=== PATIENT | male | born 1970 | race African-American/Black ===

== ENCOUNTER 2022-04-09 23:58 | Emergency (ER) | payer OTHER, SELFPAY ==
--- NOTE | ~2022-04-09 | CT_ITS ---
EXAMINATION: CT HEAD WITHOUT CONTRAST CLINICAL INFORMATION: Seizure COMPARISON: None. TECHNIQUE: Contiguous axial imaging was performed from the skull base to vertex without intravenous contrast. This CT examination was performed using dose optimization techniques as appropriate, variously including the following: * Automated exposure control * Adjustment of mA and/or kV according to patient size (this includes techniques or standardized protocols for targeted exams where dose is matched to indication/reason for exam; i.e. extremities or head) Use of iterative reconstruction technique DLP: 775 mGy-cm. FINDINGS: There is no evidence of acute intracranial hemorrhage or territorial infarction. No abnormal mass effect or midline shift is seen. Frank to white matter differentiation is well preserved. No extra-axial fluid collections are identified. No hydrocephalus. No significant volume loss. There is no abnormal attenuation within the brain parenchyma. The osseous structures and soft tissues are normal. The mastoid air cells and visualized portions of the paranasal sinuses are well aerated. CT/CT head/brain wo IV con IMPRESSION: No acute intracranial pathology.
[2022-04-10 00:14] VITALS: BP 120/80; PULSE 68; O2SAT 98
--- NOTE | 2022-04-10 00:14 | PC.NURSE ---
union carpenter Brian notified that pt. is syncopal per EMS and has IV in his arm from EMS. Pt. being moved to 22H in main ED at this time.
[2022-04-10 00:16] VITALS: BP 124/83; PULSE 72; RESP 16; TEMP 37.2; O2SAT 99
--- NOTE | 2022-04-10 00:44 | ED_ITS ---
HPI - Syncope General Chief Complaint: Syncope Stated Complaint: syncope Time Seen by Provider: 04/10/22 00:43 Source: patient and family Mode of arrival: EMS Limitations: no limitations History of Present Illness HPI narrative: Patient no significant past medical history drinks alcohol occasionally for possible seizure episode. Patient was downstairs in the kitchen, felt dizzy and lightheaded, was upstairs suddenly she heard a thud came downstairs and found him on a chair stiff not responding no signs of injuries patient remained stiff for about 5 minutes then started breathing heavily with diaphoresis confused and very tired was incontinent of the urine no tongue bite. Patient had alcohol earlier today and did not sleep for last 2 nights. Patient had similar episode 4 months and 5 months ago but short lasting not been followed by not on any medications no history of headache patient had a significant head injury in 2007 no family history of seizure Related Data Previous Rx's Medication Instructions Recorded levetiracetam 500 mg tablet 500 mg PO BID #60 tabs 04/10/22 (Keppra) Allergies Allergy/AdvReac Type Severity Reaction Status Date / Time No Known Allergies Allergy Verified 04/10/22 01:04 Review of Systems Review of Systems: Yes all other systems are reviewed and are negative [facility] Social History Social History Alcohol intake: current Alcohol type: beer and hard liquor Patient Tobacco Use Status: Current everyday Tobacco user Use of substances other than those prescribed or required for medical reasons: No Substance Use Type: Marijuana Advance Directives: No Advance Directives Information Provided: No Physical Exam Vital Signs: Vital Signs: Last Vital Signs Temp 97.6 F 04/10/22 02:07 Pulse 63 04/10/22 02:07 Resp 12 04/10/22 02:07 BP 144/85 H 04/10/22 02:07 Pulse Ox 99 04/10/22 02:07 O2 Del Method 04/10/22 02:07 BMI result Body Mass Index 25.7 Appearance: Alert. Oriented X3. No acute distress. Tired and sleepy Eyes: PERRLA, No Nystagmus ENT: Pharynx normal. Oral Mucosa moist no tongue bite Neck: Normal inspection. Neck supple. CVS: Normal heart rate and rhythm. Pulses normal. Respiratory: No respiratory distress. Equal air entry bilateral, no wheezing/rales/rhonchi Abdomen: Soft and nontender. Bowel sounds are present, no mass palpable, no CVA tenderness Skin: Skin warm and dry. Normal skin color. Normal skin turgor. Extremities: No lower extremity edema. No calf tenderness Neuro: Oriented X 3. No motor deficit. No sensory deficit.No cerebellar signs , cranial nerves II-XII intact MDM - Syncope MDM Narrative Medical decision making narrative: 01:00 Patient clinically had a seizure episode is the 3rd episode will start patient on Keppra will do CT scan of brain check labs magnesium level and alcohol level 03:00 patient workup is negative likely idiopathic seizure discharge patient home on Keppra advised to follow with neurologist Lab Data Attestation: I reviewed the patient's lab results. Result diagrams: 04/10/22 01:24 04/10/22 01:24 Labs: Lab Results 04/10/22 04/10/22 04/10/22 Range/Units 01:24 01:24 01:24 WBC 4.3 L (4.8-10.8) X10*3/uL RBC 5.19 (4.60-5.80) X10*6/uL Hgb 11.2 L (14.0-18.0) g/dl Hct 36.2 L (42.0-52.0) % MCV 69.7 L (80.0-98.0) fL MCH 21.6 L (27.0-33.0) pg MCHC 30.9 L (31.0-36.0) g/dl RDW 15.8 (11.0-16.0) % Plt Count 336 (160-400) X10*3/uL MPV 8.2 L (9.4-12.4) fL Immature Gran % (Auto) 0.0 (0.0-0.4) % Neut % (Auto) 51.8 (45-73) % Lymph % (Auto) 37.4 (20-40) % [place] % (Auto) 9.0 (2-11) % Eos % (Auto) 1.6 (0-4) % Baso % (Auto) 0.2 (0-2) % Lymph # (Auto) 1.6 (1.2-4.9) X10*3/uL [place] # (Auto) 0.4 (0.1-1.2) X10*3/uL Eos # (Auto) 0.1 (0.0-0.4) X10*3/uL Baso # (Auto) 0.0 (0.0-0.2) X10*3/uL Abs Immat Gran (auto) 0.00 (0.00-0.03) X10*3/uL Absolute Neuts (auto) 2.2 (2.0-8.3) x10*3/uL Absolute Nucleated RBC 0.000 (0.0-0.012) X10*3/uL Nucleated RBC % (auto) 0.0 (0.0-0.2) /100WBC PT 12.2 (10.0-13.1) SEC INR 1.1 (0.9-1.1) Sodium 138 (135-145) mmol/L Potassium 3.8 (3.3-5.1) mmol/L Chloride 103 (96-108) mmol/L Carbon Dioxide 22 (22-29) mmol/L Anion Gap 17 (12-20) BUN 9 (9-16) mg/dL Creatinine 1.21 (0.5-1.4) mg/dL Estim Creat Clear Calc 74.3 Estimated GFR > 60 Random Glucose 102 (60-115) mg/dL Estimat Average Glucose mg/dL Hemoglobin A1c % % Calcium 8.5 (8.4-10.2) mg/dL Magnesium 2.3 (1.6-2.6) mg/dL Total Bilirubin 0.2 (0.0-1.0) mg/dL AST 16 (5-37) U/L ALT 12 (0-40) U/L Alkaline Phosphatase 69 (39-117) U/L Total Protein 7.7 (6.5-8.0) g/dL Albumin 4.0 (3.5-5.0) g/dL Ethyl Alcohol 88 mg/dL 04/10/22 Range/Units 01:24 WBC (4.8-10.8) X10*3/uL RBC (4.60-5.80) X10*6/uL Hgb (14.0-18.0) g/dl Hct (42.0-52.0) % MCV (80.0-98.0) fL MCH (27.0-33.0) pg MCHC (31.0-36.0) g/dl RDW (11.0-16.0) % Plt Count (160-400) X10*3/uL MPV (9.4-12.4) fL Immature Gran % (Auto) (0.0-0.4) % Neut % (Auto) (45-73) % Lymph % (Auto) (20-40) % [place] % (Auto) (2-11) % Eos % (Auto) (0-4) % Baso % (Auto) (0-2) % Lymph # (Auto) (1.2-4.9) X10*3/uL [place] # (Auto) (0.1-1.2) X10*3/uL Eos # (Auto) (0.0-0.4) X10*3/uL Baso # (Auto) (0.0-0.2) X10*3/uL Abs Immat Gran (auto) (0.00-0.03) X10*3/uL Absolute Neuts (auto) (2.0-8.3) x10*3/uL Absolute Nucleated RBC (0.0-0.012) X10*3/uL Nucleated RBC % (auto) (0.0-0.2) /100WBC PT (10.0-13.1) SEC INR (0.9-1.1) Sodium (135-145) mmol/L Potassium (3.3-5.1) mmol/L Chloride (96-108) mmol/L Carbon Dioxide (22-29) mmol/L Anion Gap (12-20) BUN (9-16) mg/dL Creatinine (0.5-1.4) mg/dL Estim Creat Clear Calc Estimated GFR Random Glucose (60-115) mg/dL Estimat Average Glucose 114 mg/dL Hemoglobin A1c % 5.6 % Calcium (8.4-10.2) mg/dL Magnesium (1.6-2.6) mg/dL Total Bilirubin (0.0-1.0) mg/dL AST (5-37) U/L ALT (0-40) U/L Alkaline Phosphatase (39-117) U/L Total Protein (6.5-8.0) g/dL Albumin (3.5-5.0) g/dL Ethyl Alcohol mg/dL Discharge Plan Discharge Clinical Impression: New onset seizure Patient Disposition: Home, Self-Care Instructions: New-Onset Seizure in Adults (ED) Additional Instructions: Avoid alcohol sleep well You likely have seizure disorder Take Keppra 500 mg twice daily for seizure Follow with neurologist for further evaluation and treatment Prescriptions: New levetiracetam [Keppra] 500 mg tablet 500 mg PO BID Qty: 60 0RF Referrals: Nevaeh Cook MD [Physician] - 1 week Discharge Date/Time: 04/10/22 03:50 Print Language: Hungarian
[2022-04-10 00:45] VITALS: BP 106/63; PULSE 53; RESP 18; TEMP 36.6; O2SAT 95
[2022-04-10 00:50] VITALS: BMI 25.7
[2022-04-10 01:27] LABS: MANUAL DIFF FLAG NO
[2022-04-10 01:28] LABS: Basophils Percent Auto 0.2 % (0-2); Eosinophils Absolute Auto 0.1 X10*3/uL (0.0-0.4); Eosinophils Percent Auto 1.6 % (0-4); Hematocrit 36.2 % (42.0-52.0); Hemoglobin 11.2 g/dl (14.0-18.0); Lymphocytes Absolute Auto 1.6 X10*3/uL (1.2-4.9); Lymphocytes Percent Auto 37.4 % (20-40); Mean Corpuscular HGB Conc 30.9 g/dl (31.0-36.0); Mean Corpuscular Hemoglobin 21.6 pg (27.0-33.0); Mean Corpuscular Volume 69.7 fL (80.0-98.0); Mean Platelet Volume 8.2 fL (9.4-12.4); Monocytes Absolute Auto 0.4 X10*3/uL (0.1-1.2); Neutrophils Absolute Auto 2.2 x10*3/uL (2.0-8.3); Neutrophils Percent Auto 51.8 % (45-73); Platelet Count 336 X10*3/uL (160-400); Red Blood Count 5.19 X10*6/uL (4.60-5.80); Red Cell Distribution Width 15.8 % (11.0-16.0); White Blood Count 4.3 X10*3/uL (4.8-10.8)
[2022-04-10 01:34] LABS: INTERNATIONAL NORM RATIO 1.1 (0.9-1.1); Prothrombin Time 12.2 SEC (10.0-13.1)
[2022-04-10] MEDS: levETIRAcetam in NaCl (iso-os) 1,000 MG/100 ML PIGGYBACK 400 MG IV (01:35)
[2022-04-10] MEDS: 0.9 % Sodium Chloride 1,000 ML 999 ML IV (01:35)
[2022-04-10 01:46] LABS: Alanine Aminotransferase 12 U/L (0-40); Alkaline Phosphatase 69 U/L (39-117); Anion Gap 17 (12-20); Aspartate Amino Transferase 16 U/L (5-37); Bilirubin Total 0.2 mg/dL (0.0-1.0); Blood Urea Nitrogen 9 mg/dL (9-16); Calcium 8.5 mg/dL (8.4-10.2); Carbon Dioxide 22 mmol/L (22-29); Chloride 103 mmol/L (96-108); Creatinine Clr Calc Pharmacy 74.3; Estimated Glomerular Filt Rate > 60; Ethanol 88 mg/dL; Glucose Random 102 mg/dL (60-115); Magnesium 2.3 mg/dL (1.6-2.6); Potassium 3.8 mmol/L (3.3-5.1); Sodium 138 mmol/L (135-145); Total Protein 7.7 g/dL (6.5-8.0)
[2022-04-10 02:07] VITALS: BP 144/85; PULSE 63; RESP 12; TEMP 36.4; O2SAT 98; O2SAT 99
[2022-04-10 05:19] LABS: Estimated Average Glucose 114 mg/dL; Hemoglobin A1c % 5.6 %
== END 2022-04-10 03:50 | disposition home or self-care (01) ==
PROVIDERS: Emergency Provider Internal Medicine
DX: R56.9 Unspecified convulsions (principal); R55 Syncope and collapse; R42 Dizziness and giddiness; F17.200 Nicotine dependence, unspecified, uncomplicated; Z71.6 Tobacco abuse counseling; Z79.899 Other long term (current) drug therapy
CPT/HCPCS: 36415; 70450; 80053; 82077; 83036; 83735; 85025; 85610; 96365; 99284; J1953

== ENCOUNTER 2022-05-20 09:31 | Emergency (ER) | payer OTHER, SELFPAY ==
--- NOTE | ~2022-05-20 | CT_ITS ---
EXAMINATION: CT FACIAL BONES WITHOUT CONTRAST CLINICAL INFORMATION: Right mandibular swelling. Question dental abscess. COMPARISON: CT scan of the head 04/10/2022. TECHNIQUE: Boiler Shop Supervisor images were obtained. CT imaging of the face was performed without contrast. Data was reformatted into multiplanar images at the acquisition workstation. This CT examination was performed using dose optimization techniques as appropriate, variously including the following: *Automated exposure control *Adjustment of mA and/or kV according to patient size (this includes techniques or standardized protocols for targeted exams where dose is matched to indication/reason for exam; i.e. extremities or head) *Use of iterative reconstruction technique DLP: 332 mGy-cm FINDINGS: The diagnostic accuracy of this examination is somewhat limited due to the absence of intravenous contrast. There is a periapical lucency associated with a carious right mandibular molar that erodes through the lingual cortex of the right mandibular ramus best visualized on axial image 86 of 274 series 2 and there is an associated subperiosteal abscess, the margins of which are difficult to accurately characterize due to the absence of intravenous contrast. The collection measures at least 4 cm in diameter. Mass effect causes leftward displacement of the tongue. There are multiple reactive cervical lymph nodes visualized within the submandibular spaces and there is extensive stranding within the subcutaneous soft tissues and thickening of the platysma. Patency of the venous anatomy cannot be assessed on the basis of this examination and the presence of thrombophlebitis cannot be determined. CT/CT facial bones wo IV con IMPRESSION: The diagnostic accuracy of this examination is somewhat limited due to the absence of intravenous contrast. There is a a relatively large subperiosteal abscess associated with a carious right mandibular molar eroding through the lingual cortex of the right mandibular ramus. Multiple reactive lymph nodes. Due to the absence of intravenous contrast the possibility of septic thrombophlebitis cannot be excluded on the basis of this examination.
[2022-05-20 09:35] VITALS: BP 169/90; PULSE 90; RESP 18; TEMP 37.1; O2SAT 100; BMI 26.3
[2022-05-20 12:20] VITALS: BP 177/114; PULSE 92; RESP 20; TEMP 36.8; O2SAT 100
--- NOTE | 2022-05-20 12:21 | ED_ITS ---
HPI - Dental/Oral General Chief complaint: Dental/Oral Stated complaint: facial swelling Time Seen by Provider: 05/20/22 12:40 Related Data Previous Rx's Medication Instructions Recorded levetiracetam 500 mg tablet 500 mg PO BID #60 tabs 04/10/22 (Keppra) Allergies Allergy/AdvReac Type Severity Reaction Status Date / Time No Known Allergies Allergy Verified 05/20/22 09:42 PENDING SALE TO [facility] Social History Social History Alcohol intake: current Alcohol type: beer and hard liquor Patient Tobacco Use Status: Current everyday Tobacco user Substance Use Type: Marijuana Advance Directives: No Advance Directives Information Provided: Yes Physical Exam Vital Signs: Vital Signs: Last Vital Signs Temp 98.2 F 05/20/22 13:39 Pulse 81 05/20/22 16:29 Resp 16 05/20/22 16:29 BP 165/104 H 05/20/22 16:29 Pulse Ox 96 05/20/22 16:29 O2 Del Method 05/20/22 16:29 BMI result Body Mass Index 26.3 Course Course Course Narrative: 52M with hx of seizures and HTN p/w stopping taking medications and worsening dental infection at the right lower mandible with induration....mildly concerning for development of Michael's. Pt reports pain on swallowing, but able to swallow secretions and denies difficulty breathing VS reviewe: Hypertension GEN: moderate distress due to pain HEENT: NC/AT, EOMI/PERRLA, Ears wnl, induration at right lower jaw with extension into soft tissue on the underside and + trismus. PULM: CTAB, no stridor/wheeze/rhonchi/rales CVS: RRR, no murmurs ABD: NT/ND - labs, imaging, Keppra level, CT facial - Notified inside provider about concerns for Michael's Medications Administered Discontinued Medications Generic Name Dose Route Start Last Admin Trade Name Freparul PRN Reason Stop Dose Admin Acetaminophen 975 mg 05/20/22 12:25 05/20/22 12:29 Acetaminophen 325 Mg Tablet PO 05/20/22 12:26 975 mg ONCE ONE Administration Clindamycin Phosphate 600 mg in 50 mls @ 100 mls/hr 05/20/22 15:58 05/20/22 17:16 Cleocin IV 05/20/22 16:27 Infused ONCE ONE Infusion Ketorolac Tromethamine 15 mg 05/20/22 12:22 05/20/22 12:29 Ketorolac Tromethamine 15 Mg/Ml Vial IM 05/20/22 12:23 15 mg ONCE ONE Administration Discharge Plan Discharge Clinical Impression: Dental caries, Dental abscess Patient Disposition: Xfer [facility] Hospital Transfer Details: [facility] Emergency Department for OMFS Prescriptions: No Action levetiracetam [Keppra] 500 mg tablet 500 mg PO BID Qty: 60 0RF Interventions: Acute Care Transfer Worksheet (ED) Last Done: 05/20/22 17:32 Discharge Date/Time: 05/20/22 17:32
[2022-05-20] MEDS: Acetaminophen 325 MG TABLET 975 MG PO (12:29)
[2022-05-20] MEDS: Ketorolac Tromethamine 15 MG/ML VIAL IM (12:29)
--- NOTE | 2022-05-20 13:06 | PC.NURSE ---
Pt at CT scan at this time
[2022-05-20 13:39] VITALS: BP 152/91; PULSE 82; RESP 16; TEMP 36.8; O2SAT 98
[2022-05-20 13:43] LABS: MANUAL DIFF FLAG NO
--- NOTE | 2022-05-20 13:46 | PC.NURSE ---
Pt alert and oriented, respirations even and unlabored. Swelling noted to right side of face, states improvement in pain and swelling while here. Airway patent, 98% on room air. IV established, labs drawn and sent.
[2022-05-20 13:49] LABS: Basophils Percent Auto 0.2 % (0-2); Eosinophils Percent Auto 0.2 % (0-4); Hematocrit 35.9 % (42.0-52.0); Hemoglobin 11.3 g/dl (14.0-18.0); Imm Gran Abs Auto 0.03 X10*3/uL (0.00-0.03); Imm Gran Pct Auto 0.3 % (0.0-0.4); Lymphocytes Absolute Auto 1.3 X10*3/uL (1.2-4.9); Lymphocytes Percent Auto 14.7 % (20-40); Mean Corpuscular HGB Conc 31.5 g/dl (31.0-36.0); Mean Corpuscular Hemoglobin 21.4 pg (27.0-33.0); Mean Corpuscular Volume 68.1 fL (80.0-98.0); Mean Platelet Volume 8.3 fL (9.4-12.4); Monocytes Absolute Auto 0.8 X10*3/uL (0.1-1.2); Monocytes Percent Auto 8.3 % (2-11); Neutrophils Absolute Auto 6.9 x10*3/uL (2.0-8.3); Neutrophils Percent Auto 76.3 % (45-73); Platelet Count 406 X10*3/uL (160-400); Red Blood Count 5.27 X10*6/uL (4.60-5.80); Red Cell Distribution Width 14.6 % (11.0-16.0); White Blood Count 9.1 X10*3/uL (4.8-10.8)
[2022-05-20 13:56] LABS: Lactic Acid 0.8 mmol/L (0.5-2.0)
[2022-05-20 14:01] LABS: Alanine Aminotransferase 16 U/L (0-40); Alkaline Phosphatase 81 U/L (39-117); Anion Gap 14 (12-20); Aspartate Amino Transferase 17 U/L (5-37); Bilirubin Total 0.9 mg/dL (0.0-1.0); Blood Urea Nitrogen 6 mg/dL (9-16); Calcium 8.9 mg/dL (8.4-10.2); Carbon Dioxide 27 mmol/L (22-29); Chloride 99 mmol/L (96-108); Creatinine Clr Calc Pharmacy 93.5; Estimated Glomerular Filt Rate > 60; Glucose Random 115 mg/dL (60-115); Potassium 4.2 mmol/L (3.3-5.1); Sodium 136 mmol/L (135-145); Total Protein 7.9 g/dL (6.5-8.0)
--- NOTE | 2022-05-20 15:57 | ED_ITS ---
HPI - Dental/Oral General Chief complaint: Dental/Oral Stated complaint: facial swelling Time Seen by Provider: 05/20/22 12:40 Source: patient Mode of arrival: ambulatory History of Present Illness HPI Narrative: 52-year-old male with several days worth of right facial swelling. Presents to the emergency department today with increased swelling and mild difficulty swallowing. Denies fevers or shaking chills. No history of injury or illness. MD Complaint: tooth pain Onset (ago): day(s) Duration: constant Severity: moderate Associated symptoms: pain with swallowing Related Data Previous Rx's Medication Instructions Recorded levetiracetam 500 mg tablet 500 mg PO BID #60 tabs 04/10/22 (Keppra) Allergies Allergy/AdvReac Type Severity Reaction Status Date / Time No Known Allergies Allergy Verified 05/20/22 09:42 Review of Systems Review of Systems: Constitutional: Denies fever(s), chills Eyes: Denies diplopia and Denies loss of vision ENT: Denies neck pain and Denies sore throat Cardiovascular: Denies palpitations and Denies dyspnea Respiratory: Denies cough, wheezing or SOB Gastrointestinal: Denies abdominal pain, diarrhea and nausea Musculoskeletal: Admits to neck pain on the right side , no numbness Integumentary Denies non-healing lesions, rash Neurologic: Denies Abnormal speech, loss of vision, numbness and weakness Endocrine: denies weight loss, fatigue Psych: denies depression, anxiety Neurologic: Denies Abnormal speech present [facility] Social History Social History Alcohol intake: current Alcohol type: beer and hard liquor Patient Tobacco Use Status: Current everyday Tobacco user Substance Use Type: Marijuana Advance Directives: No Advance Directives Information Provided: Yes Physical Exam Vital Signs: Vital Signs: Last Vital Signs Temp 98.2 F 05/20/22 13:39 Pulse 82 05/20/22 13:39 Resp 16 05/20/22 13:39 BP 152/91 H 05/20/22 13:39 Pulse Ox 98 05/20/22 13:39 O2 Del Method 05/20/22 13:39 BMI result Body Mass Index 26.3 Vital signs noted. Mild hypertension Const: General: cooperative, comfortable and acute distress mild Nutritio nal Appearance: average body habitus Orientation/consciousness: patient oriented x3 HEENT: Head: Yes normocephalic and Yes atraumatic Ears: external ears normal General nose exam: Normal external nose present Face images: 1. Swelling and tenderness Eyes: Conjunctivae: conjunctivae normal Sclerae: sclerae normal Pupils: Equal, round and reactive pupils present EOM: EOMs intact bilaterally Neck: Neck: Yes normal visual inspection and Yes lymphadenopathy Resp: Effort & Inspection: normal respiratory effort and no cough Auscultation: clear to auscultation bilaterally Cardio: Rate: regular rate Rhythm: regular rhythm GI: Inspection: Yes normal to inspection Skin: General skin exam: no rashes or lesions noted, no erythema and no mottling Neuro: General: patient oriented x3 and CN's II-XI intact bilaterally Cranial nerves: Yes Equal, round and reactive pupils present Speech: No Abnormal speech present Gait exam (Neuro): Normal gait present Medications Administered Discontinued Medications Generic Name Dose Route Start Last Admin Trade Name Freq PRN Reason Stop Dose Admin Acetaminophen 975 mg 05/20/22 12:25 05/20/22 12:29 Acetaminophen 325 Mg Tablet PO 05/20/22 12:26 975 mg ONCE ONE Administration Ketorolac Tromethamine 15 mg 05/20/22 12:22 05/20/22 12:29 Ketorolac Tromethamine 15 Mg/Ml Vial IM 05/20/22 12:23 15 mg ONCE ONE Administration Medical Decision Making Medical Decision Making MDM Narrative: 52-year-old male presents to the emergency department with presumed dental abscess. CT scan was obtained which shows a large abscess with periosteal erosion of the right mandibular ramus. The patient will be getting antibiotics IV and transferred to [facility] for OMFS evaluation Discussion of management with other physician/healthcare provider/other source (e.g., hospitalist, valuation consultant, behavioral health): Discussion w/other physician/healthcare provider Management of the patient was discussed with: Payroll And Benefits Manager ([facility]) My interpretation is Discussion of test interpretation with radiology: Discussion of test interpretation with radiology Discussed with radiology regarding test interpretation. IMPRESSION: The diagnostic accuracy of this examination is somewhat limited due to the absence of intravenous contrast. There is a a relatively large subperiosteal abscess associated with a carious right mandibular molar eroding through the lingual cortex of the right mandibular ramus. Multiple reactive lymph nodes. Due to the absence of intravenous contrast the possibility of septic thrombophlebitis cannot be excluded on the basis of this examination Discharge Plan Discharge Clinical Impression: Dental caries, Dental abscess Patient Disposition: Xfer [facility] Hospital Transfer Details: [facility] Emergency Department for OMFS Prescriptions: No Action levetiracetam [Keppra] 500 mg tablet 500 mg PO BID Qty: 60 0RF
[2022-05-20] MEDS: Clindamycin Phosphate/D5W 600 MG/50 ML PIGGYBACK 100 MG IV (16:27)
[2022-05-20 16:29] VITALS: BP 165/104; PULSE 81; RESP 16; O2SAT 96
--- NOTE | 2022-05-20 16:33 | PC.NURSE ---
Pt to be transferred to [facility]. IV antibiotics running at this time, awaiting EMS transport.
--- NOTE | 2022-05-20 17:13 | PC.NURSE ---
At 1640 told this US/Pct that patient was accepted by to [facility] ER to ER. [place] called at 1658 for a BLS transfer,eta within 20mins. Ems arrived at 1715 for transport.
--- NOTE | 2022-05-20 17:31 | PC.NURSE ---
Report given to Renaldo
[2022-05-24 12:47] LABS: Levetiracetam Keppra <2.0 mcg/mL (6.0-46.0)
== END 2022-05-20 17:32 | disposition short-term general hospital (02) ==
PROVIDERS: Student in an Organized Health Care Education/Training Program; Emergency Provider Emergency Medicine
DX: K02.9 Dental caries, unspecified (principal); K04.7 Periapical abscess without sinus; F17.200 Nicotine dependence, unspecified, uncomplicated; Z71.6 Tobacco abuse counseling; Z79.899 Other long term (current) drug therapy
CPT/HCPCS: 36415; 70486; 80053; 80177; 83605; 85025; 87040; 96365; 96372; 99285; J1885